=== PATIENT | male | born 1960 | race Caucasian/White ===

== ENCOUNTER → 2021-12-19 | Outpatient (CLI) | payer OTHER | LOC: COL.RAD 14:33 | DX: M51.36 Other intervertebral disc degeneration, lumbar region (principal) ==

== ENCOUNTER → 2022-06-19 | Outpatient (CLI) | payer OTHER ==
[2022-06-19 13:48] LABS: HEMATOCRIT 44.9 % (42.0-52.0); HEMOGLOBIN 15.5 g/dl (13.5-18.0); MEAN CELL VOLUME 88 fl (80.0-100.0); MEAN CORPUSCULAR HEMOGLOBIN 31 pg (27-31); MEAN CORPUSCULAR HGB CONC 35 g/dl (33.0-37.0); MEAN PLATELET VOLUME 9.5 fl (7.4-10.4); PLATELET COUNT 247 K/mm3 (130-400); RED BLOOD COUNT 5.09 M/mm3 (4.20-5.60)
[2022-06-19 14:04] LABS: CALCIUM 8.7 mg/dL (8.4-10.2); CREATININE, serum 0.81 mg/dL (0.72-1.25); POTASSIUM 3.9 mmol/L (3.5-4.5)
== END ==
LOC: COL.LAB 13:12
DX: R94.39 Abnormal result of other cardiovascular function study (principal)